=== PATIENT | female | born 1960 | race Caucasian/White ===

== ENCOUNTER 2020-12-31 12:21 | Emergency (ER) | payer BC, SELFPAY ==
[~2020-12-31] VITALS: Ht 160 cm; Wt 157.4 kg
[~2020-12-31 12:21] MED LIST: NO HOME MEDS
[2020-12-31 13:23] VITALS: BP 154/75
== END 2020-12-31 14:27 | disposition home or self-care (01) ==
LOC: ER 12:23
DX: H53.9 Unspecified visual disturbance (principal); R20.2 Paresthesia of skin; R20.0 Anesthesia of skin; M79.7 Fibromyalgia; Z88.8 Allergy status to other drugs, medicaments and biological substances; Z87.01 Personal history of pneumonia (recurrent)
CPT/HCPCS: 93005; 99283